=== PATIENT | female | born 1940 | race Caucasian/White ===

== ENCOUNTER 2021-10-05 12:25 | Outpatient (CLI) | payer MEDICARE | END 2021-10-05 12:26 | disposition home or self-care (01) | LOC: BICRAD 12:25 | PROVIDERS: ATTEND Specialist | DX: R06.00 Dyspnea, unspecified (principal) | CPT/HCPCS: 71046 ==

== ENCOUNTER 2024-04-09 21:45 | Inpatient (IN) | payer MEDICARE ==
[~2024-04-09 21:45] MED LIST: Iopamidol-370 76% 500 ML MDV (1 ML CHARGE) ONE
[2024-04-09] MEDS ORDERED: Ondansetron PF 4 MG/2 ML Vial IVP PRN (22:15)
[2024-04-09] MEDS ORDERED: Ondansetron ODT 4 MG TAB PO PRN (22:15)
[2024-04-09] MEDS ORDERED: Acetaminophen 650 MG Suppository PR PRN (22:15)
[2024-04-10 00:05] VITALS: BMI 23.3
[2024-04-10 00:11] LABS: #Basophils Less than 0.03 10x3/uL (0.0-0.2); #Eosinophils Less than 0.03 10x3/uL (0.0-0.7); %Basophils 0.2 % (0.0-1.0); %Lymphocytes 4.4 % (21.0-51.0); %Monocytes 0.6 % (0.0-10.0); %Neutrophils 93.9 % (42.0-75.0); Hematocrit 35.9 % (36.0-47.0); Hemoglobin 10.5 g/dL (12.0-16.0); Mean Corpuscular HGB CONC 29.2 g/dL (32.0-36.0); Mean Corpuscular Hemoglobin 28.7 pg (27.0-31.0); Mean Corpuscular Volume 98.1 fL (78.0-98.0); Mean Platelet Volume 9.8 fL (7.4-10.4); Platelet Count 217 10x3/uL (130-400); RBC Distribution Width 13.8 % (11.5-14.5); Red Blood Cell (RBC) Count 3.66 mill/uL (4.20-5.40)
[2024-04-10] MEDS ORDERED: Ipratropium/Albuterol 3 ML NEB NEB PRN (00:27)
[2024-04-10 00:30] LABS: ALT (SGPT) 17 U/L (8-55); AST (SGOT) 23 U/L (5-34); Albumin 2.5 g/dL (3.4-4.8); Alkaline Phosphatase 59 U/L (40-110); Anion Gap 19 mmol/L (10-20); BUN (Urea Nitrogen) 30 mg/dL (9.8-20.1); Bilirubin, Total 0.5 mg/dL (0.2-1.2); Calc. Creatinine Clearance 29 mL/min (70-130); Calcium 8.3 mg/dL (7.8-10.44); Carbon Dioxide 17 mmol/L (23-31); Chloride 110 mmol/L (98-107); Estimated GFR 37; Globulin 3.8 g/dL (2.4-3.5); Glucose 155 mg/dL (83-110); Potassium 3.7 mmol/L (3.5-5.1); Protein, Total 6.3 g/dL (5.8-8.1); Sodium 142 mmol/L (136-145)
[2024-04-10] MEDS: Heparin 25,000 units/D5W 500 ML IVPB SCH (00:58)
[2024-04-10] MEDS: LevoFLOXacin 750 mg/D5W 750 MG in Premix 1 BAG IVPB SCH (00:59)
[2024-04-10 01:31] LABS: Troponin I 0.425 ng/mL (< 0.028)
[2024-04-10] MEDS: Acetaminophen 325 MG TAB PO SCH (01:44)
[2024-04-10] MEDS ORDERED: Lorazepam 2 MG/ML VIAL SLOW IVP SCH (03:30)
[2024-04-10] MEDS: Ziprasidone 20 MG VIAL IM SCH (03:40)
[2024-04-10 04:35] LABS: Troponin I 0.436 ng/mL (< 0.028)
[2024-04-10] MEDS: Doxycycline 100 MG CAP PO SCH (08:02)
[2024-04-10] MEDS: Famotidine 20 MG TAB PO SCH (08:02)
[2024-04-10] MEDS: Famotidine/PF 20 mg/2ml Vial SLOW IVP SCH (08:02)
[2024-04-10] MEDS ORDERED: Aspirin Chewable 81 MG TAB PO SCH (09:00)
[2024-04-10] MEDS: Heparin 10,000 UNITS/ 10 ML VIAL SLOW IVP SCH (09:05)
[2024-04-10] MEDS: Enoxaparin 60 MG (0.6 mL) SYRINGE SC SCH (10:41)
[2024-04-10 14:10] VITALS: BMI 23.3
[2024-04-10] MEDS ORDERED: Enoxaparin 60 MG (0.6 mL) SYRINGE SC SCH (21:00)
[2024-04-10] MEDS ORDERED: Rosuvastatin 20 MG TAB PO SCH (21:00)
[2024-04-10] MEDS: Rosuvastatin 10 MG TAB PO SCH (21:24)
[2024-04-10] MEDS: FLU (Fluad Triv) TS24-25 (65UP)/MF59C/PF 45 MCG/0.5 ML Syringe IM ONE (21:25)
[2024-04-11 04:46] LABS: #Basophils Less than 0.03 10x3/uL (0.0-0.2); #Eosinophils Less than 0.03 10x3/uL (0.0-0.7); %Basophils 0.2 % (0.0-1.0); %Lymphocytes 7.9 % (21.0-51.0); %Monocytes 6.9 % (0.0-10.0); Hematocrit 33.6 % (36.0-47.0); Hemoglobin 10.6 g/dL (12.0-16.0); Mean Corpuscular HGB CONC 31.5 g/dL (32.0-36.0); Mean Corpuscular Hemoglobin 28.7 pg (27.0-31.0); Mean Corpuscular Volume 91.1 fL (78.0-98.0); Mean Platelet Volume 9.8 fL (7.4-10.4); Platelet Count 320 10x3/uL (130-400); RBC Distribution Width 13.6 % (11.5-14.5); Red Blood Cell (RBC) Count 3.69 mill/uL (4.20-5.40)
[2024-04-11 05:17] LABS: ALT (SGPT) 20 U/L (8-55); AST (SGOT) 31 U/L (5-34); Albumin 2.6 g/dL (3.4-4.8); Alkaline Phosphatase 68 U/L (40-110); Anion Gap 17 mmol/L (10-20); BUN (Urea Nitrogen) 46 mg/dL (9.8-20.1); Bilirubin, Total 0.5 mg/dL (0.2-1.2); Calc. Creatinine Clearance 26 mL/min (70-130); Calcium 8.5 mg/dL (7.8-10.44); Carbon Dioxide 20 mmol/L (23-31); Cardiac Risk 2.7 (Less than 4.5); Chloride 111 mmol/L (98-107); Cholesterol 144 mg/dl (< 200 Desired); Estimated GFR 34; Globulin 3.5 g/dL (2.4-3.5); Glucose 95 mg/dL (83-110); HDL Cholesterol 53 mg/dL (>60 Neg Risk); LDL Cholesterol, Calculated 69 mg/dL; Potassium 3.8 mmol/L (3.5-5.1); Protein, Total 6.1 g/dL (5.8-8.1); Sodium 144 mmol/L (136-145); Triglycerides 110 mg/dL (Less than 150)
[2024-04-11] MEDS ORDERED: Enoxaparin 60 MG (0.6 mL) SYRINGE SC SCH (09:00)
[2024-04-11] MEDS: Aripiprazole 10 MG TAB PO SCH (09:37)
[2024-04-11] MEDS: Memantine 10 MG TAB PO SCH (09:37)
[2024-04-11] MEDS ORDERED: Apixaban 2.5 MG TAB PO SCH ×2 (09:45→21:00)
[2024-04-11] MEDS ORDERED: Furosemide 20 MG TAB PO SCH (10:00)
[2024-04-11] MEDS: Aspirin 81 mg Enteric Coated Tablet PO SCH (10:36)
[2024-04-11] MEDS: Furosemide 40 MG TAB PO SCH (10:36)
[2024-04-11] MEDS: Enoxaparin 40 MG (0.4 mL) SYRINGE SC SCH (10:36)
[2024-04-11] MEDS: Potassium Chloride 20 MEQ TAB PO SCH (10:36)
[2024-04-11] MEDS: Empagliflozin 10 MG TAB PO SCH (10:37)
[2024-04-11] MEDS: Donepezil HCl 10 MG TAB PO SCH (20:33)
[2024-04-11 22:17] LABS: Hematocrit 38.3 % (36.0-47.0); Hemoglobin 12.3 g/dL (12.0-16.0); Platelet Count 309 10x3/uL (130-400)
[2024-04-12] MEDS: LevoFLOXacin 750 mg/D5W 750 MG in Premix 1 BAG IVPB SCH (00:23)
[2024-04-12 06:16] LABS: #Basophils 0.04 10x3/uL (0.0-0.2); %Basophils 0.4 % (0.0-1.0); %Eosinophils 0.3 % (0.0-10.0); %Lymphocytes 11.9 % (21.0-51.0); %Monocytes 7.8 % (0.0-10.0); %Neutrophils 77.4 % (42.0-75.0); Hematocrit 36.6 % (36.0-47.0); Hemoglobin 11.3 g/dL (12.0-16.0); Mean Corpuscular HGB CONC 30.9 g/dL (32.0-36.0); Mean Corpuscular Hemoglobin 28.4 pg (27.0-31.0); Mean Platelet Volume 9.6 fL (7.4-10.4); Platelet Count 315 10x3/uL (130-400); RBC Distribution Width 13.6 % (11.5-14.5); Red Blood Cell (RBC) Count 3.98 mill/uL (4.20-5.40)
[2024-04-12 06:30] LABS: Anion Gap 15 mmol/L (10-20); BUN (Urea Nitrogen) 43 mg/dL (9.8-20.1); Calc. Creatinine Clearance 30 mL/min (70-130); Calcium 8.4 mg/dL (7.8-10.44); Carbon Dioxide 23 mmol/L (23-31); Chloride 105 mmol/L (98-107); Estimated GFR 39; Glucose 88 mg/dL (83-110); Potassium 3.7 mmol/L (3.5-5.1); Sodium 139 mmol/L (136-145)
[2024-04-12] MEDS: Aspirin 81 mg Enteric Coated Tablet PO SCH (08:41)
[2024-04-12] MEDS: Furosemide 40 MG TAB PO SCH (08:41)
[2024-04-12] MEDS: Enoxaparin 40 MG (0.4 mL) SYRINGE SC SCH (08:42)
[2024-04-12] MEDS ORDERED: Enoxaparin 30 MG (0.3 mL) SYRINGE SC SCH (09:00)
[2024-04-13 04:52] LABS: #Basophils 0.04 10x3/uL (0.0-0.2); %Basophils 0.6 % (0.0-1.0); %Eosinophils 1.4 % (0.0-10.0); %Lymphocytes 17.6 % (21.0-51.0); %Monocytes 7.1 % (0.0-10.0); %Neutrophils 70.7 % (42.0-75.0); Hemoglobin 11.9 g/dL (12.0-16.0); Mean Corpuscular HGB CONC 31.3 g/dL (32.0-36.0); Mean Corpuscular Hemoglobin 28.5 pg (27.0-31.0); Mean Corpuscular Volume 90.9 fL (78.0-98.0); Mean Platelet Volume 9.4 fL (7.4-10.4); Platelet Count 317 10x3/uL (130-400); RBC Distribution Width 13.5 % (11.5-14.5); Red Blood Cell (RBC) Count 4.18 mill/uL (4.20-5.40)
[2024-04-13 05:23] LABS: Anion Gap 15 mmol/L (10-20); BUN (Urea Nitrogen) 39 mg/dL (9.8-20.1); Calc. Creatinine Clearance 29 mL/min (70-130); Calcium 8.5 mg/dL (7.8-10.44); Carbon Dioxide 24 mmol/L (23-31); Chloride 105 mmol/L (98-107); Estimated GFR 39; Glucose 94 mg/dL (83-110); Magnesium 2.4 mg/dL (1.6-2.6); Potassium 3.8 mmol/L (3.5-5.1); Sodium 140 mmol/L (136-145)
[2024-04-13] MEDS: Enoxaparin 30 MG (0.3 mL) SYRINGE SC SCH (08:43)
[2024-04-13 21:42] LABS: Hematocrit 39.4 % (36.0-47.0); Hemoglobin 12.2 g/dL (12.0-16.0); Platelet Count 324 10x3/uL (130-400)
[2024-04-14] MEDS: LevoFLOXacin 500 mg/D5W 500 MG in Premix 1 BAG IVPB SCH (00:19)
[2024-04-14 04:15] LABS: #Basophils 0.05 10x3/uL (0.0-0.2); %Basophils 0.7 % (0.0-1.0); %Lymphocytes 17.1 % (21.0-51.0); %Monocytes 6.5 % (0.0-10.0); %Neutrophils 68.6 % (42.0-75.0); Hematocrit 39.9 % (36.0-47.0); Hemoglobin 12.2 g/dL (12.0-16.0); Mean Corpuscular HGB CONC 30.6 g/dL (32.0-36.0); Mean Corpuscular Hemoglobin 27.9 pg (27.0-31.0); Mean Corpuscular Volume 91.3 fL (78.0-98.0); Mean Platelet Volume 9.2 fL (7.4-10.4); Platelet Count 323 10x3/uL (130-400); RBC Distribution Width 13.5 % (11.5-14.5); Red Blood Cell (RBC) Count 4.37 mill/uL (4.20-5.40)
[2024-04-14 04:47] LABS: Anion Gap 15 mmol/L (10-20); BUN (Urea Nitrogen) 42 mg/dL (9.8-20.1); Calc. Creatinine Clearance 27 mL/min (70-130); Calcium 8.5 mg/dL (7.8-10.44); Carbon Dioxide 25 mmol/L (23-31); Chloride 106 mmol/L (98-107); Estimated GFR 36; Glucose 97 mg/dL (83-110); Potassium 4.2 mmol/L (3.5-5.1); Sodium 142 mmol/L (136-145)
[2024-04-15 03:58] LABS: #Basophils 0.06 10x3/uL (0.0-0.2); %Basophils 0.9 % (0.0-1.0); %Eosinophils 3.7 % (0.0-10.0); %Lymphocytes 21.5 % (21.0-51.0); %Monocytes 6.6 % (0.0-10.0); %Neutrophils 62.9 % (42.0-75.0); Hematocrit 38.4 % (36.0-47.0); Hemoglobin 11.8 g/dL (12.0-16.0); Mean Corpuscular HGB CONC 30.7 g/dL (32.0-36.0); Mean Corpuscular Hemoglobin 28.1 pg (27.0-31.0); Mean Corpuscular Volume 91.4 fL (78.0-98.0); Mean Platelet Volume 9.2 fL (7.4-10.4); Platelet Count 328 10x3/uL (130-400); RBC Distribution Width 13.7 % (11.5-14.5)
[2024-04-15 04:29] LABS: Anion Gap 12 mmol/L (10-20); BUN (Urea Nitrogen) 40 mg/dL (9.8-20.1); Calc. Creatinine Clearance 27 mL/min (70-130); Calcium 8.5 mg/dL (7.8-10.44); Carbon Dioxide 25 mmol/L (23-31); Chloride 105 mmol/L (98-107); Estimated GFR 35; Glucose 97 mg/dL (83-110); Potassium 4.2 mmol/L (3.5-5.1); Sodium 138 mmol/L (136-145)
[2024-04-15] MEDS: Famotidine 20 MG TAB PO SCH (08:25)
[2024-04-15] MEDS: Famotidine/PF 20 mg/2ml Vial SLOW IVP SCH (08:27)
[2024-04-15 12:11] VITALS: TEMP 97.8
[2024-04-15 12:48] VITALS: BP 115/72
== END 2024-04-15 13:58 | disposition home or self-care (01) | DRG 280 ==
LOC: 2SE 23:24
PROVIDERS: ADMIT Student in an Organized Health Care Education/Training Program; ATTEND Internal Medicine
DX: I21.4 Non-ST elevation (NSTEMI) myocardial infarction (principal); I50.31 Acute diastolic (congestive) heart failure; J18.9 Pneumonia, unspecified organism; I50.30 Unspecified diastolic (congestive) heart failure; I13.0 Hypertensive heart and chronic kidney disease with heart failure and stage 1 through stage 4 chronic kidney disease, or unspecified chronic kidney disease; F03.90 Unspecified dementia, unspecified severity, without behavioral disturbance, psychotic disturbance, mood disturbance, and anxiety; E78.5 Hyperlipidemia, unspecified; Z79.899 Other long term (current) drug therapy; Z79.01 Long term (current) use of anticoagulants; Z79.82 Long term (current) use of aspirin; N18.30 Chronic kidney disease, stage 3 unspecified; E88.09 Other disorders of plasma-protein metabolism, not elsewhere classified
CPT/HCPCS: 36415; 71045; 71275; 80048; 80053; 80061; 83735; 83880; 84484; 85014; 85018; 85025; 85049; 93306; 94760; J1644; J1650; J1956; J3486; Q9967